=== PATIENT | male | born 1995 | race African-American/Black ===

== ENCOUNTER 2019-11-19 18:01 | Emergency (ER) | payer BC ==
[~2019-11-19] VITALS: Ht 182.9 cm; Wt 70.5 kg
--- NOTE | 2019-11-19 18:17 | PHYS DOC ---
Past History Past Medical History XQI-Abttiqvyq-lckbdcu Past Surgical History Circumcised male Smoking: Cigarettes Alcohol Use: Rarely Drug Use: Marijuana General Adult EDM: Chief Complaint: MULTIPLE COMPLAINTS HPI: HPI: ".. I ve been feeling like shit the past couple weeks.... been quynh off and on... fever sometimes... chills some time.. .. sore throat.... just quynh ache everywhere.. but better sometimes... wheeze sometimes....I do smoke... mainly marijuana..no vaping... I don't shoot up ever... I did eat some pussy maybe a couple weeks ago....maybe I picked up something... I did get chlamydia,.... That got treated..." " I just feel like I got the flu...." "I am a lot better now after that puffer... and the fluids.. " I Patient is a 24, year old male who presents with above hx and complaints of fever, chills, cough, pharyngitis, malaise, myalgia, arthralgia, wheezing and headache. Symptoms have been intermittent for the last 2 weeks. Patient denies any history immunosuppression or HIV. Patient normally healthy. No history of travel outside [facility]. No specific ill contacts other than possibly developed pharyngitis after oral sex. No history of IV drug use. Patient thinks his tetanus is up-to-date. Patient does not do flu vaccinations. Has not had any intake of bad food. No histor of hepatitis. Patient has had 4 lifetime sex partners. Patient does occasionally follow-up with primary care but he does not remember his name.. Patient admits to daily marijuana use at least 3 times a day. Patient has not taken any Tylenol or ibuprofen for his discomfort. Review of Systems: Review of Systems: Constitutional: Complains of fever or chills . Complains of generalized malaise Eyes: Denies change in visual acuity HENT: Complains of nasal congestion and sore throat Respiratory: Complains of a nonproductive cough and wheezing Cardiovascular: Denies chest pain or edema GI: Denies abdominal pain, nausea, vomiting, bloody stools or diarrhea : Denies dysuria Musculoskeletal: Complains of generalized myalgia and arthralgia Integument: Denies rash Neurologic: Complains of headache,. Denies focal weakness or sensory changes Endocrine: Denies polyuria or polydipsia Lymphatic: Denies swollen glands Psychiatric: Denies depression. Complains of anxiety. Heart Score: HEART Score for Chest Pain: HEART Score for Chest Pain Response (Comments) Value History Slighlty/Non-Suspicious 0 ECG Normal 0 Age < 45 0 Risk Factors No Risk Factors 0 Troponin < Normal Limit 0 Total 0 Risk Factors: Risk Factors: DM, Current or recent (<one month) smoker, HTN, HLP, family history of CAD, obesity. Risk Scores: Score 0 - 3: 2.5% MACE over next 6 weeks - Discharge Home Score 4 - 6: 20.3% MACE over next 6 weeks - Admit for Clinical Observation Score 7 - 10: 72.7% MACE over next 6 weeks - Early Invasive Strategies Family History: Family History: Noncontributory Current Medications: Current Meds: See nursing for home meds Allergies: Allergies: No known drug allergies Physical Exam: PE: Constitutional: Well developed, well nourished, no acute distress, non-toxic appearance. [] HENT: Normocephalic, atraumatic, bilateral external ears normal, oropharynx moist, mild injection of pharynx, postnasal drainage, no oral exudates, nose swollen turbinates and clear rhinorrhea. Eyes: PERRLA, EOMI, conjunctiva normal, no discharge. [] Neck: Normal range of motion, no tenderness, supple, no stridor. No anterior chain adenopathy Cardiovascular:Heart rate regular rhythm, no murmur [] Lungs & Thorax: Bilateral breath sounds equal at apex with few scattered wheezes on auscultation [] Abdomen: Bowel sounds normal, soft, no tenderness, no masses, no pulsatile masses. [] Small umbilicus hernia. Mild tenderness. No bowel. Circumcised male. No penile discharge. Testicles descended. Skin: Warm, dry, no erythema, no rash. [] Back: No tenderness, no CVA tenderness. [] Extremities: No tenderness, no cyanosis, no clubbing, ROM intact, no edema. [] Neurologic: Alert and oriented X 3, normal motor function, normal sensory function, no focal deficits noted. [] Psychologic: Affect anxious, judgement normal, mood normal. [] EKG: EKG: My interpretation of EKG shows a sinus rhythm at 69 bpm. No findings of acute STEMI or marked morphology. [] Radiology/Procedures: Radiology/Procedures: [address] [address] IMAGING REPORT Signed PATIENT: LAMONT TALAVERA ACCOUNT: [id number] : 1995 LOCATION: ER AGE: 24 SEX: M EXAM STATUS: REG ER ORD. PHYSICIAN: MARK BOLIVAR MD REASON: Dyspnea, cough, fever Omni 350 100cc PROCEDURE: CT ANGIOGRAPHY CHEST Exam: CT of chest with contrast INDICATION: Dyspnea, cough, fever TECHNIQUE: Sequential axial images through the chest obtained following the administration of 90 mL of Isovue-370 IV contrast. Sagittal and coronal reformatted images were reconstructed from the axial data and reviewed. Comparisons: Chest x-ray same day FINDINGS: Visualized portions of the thyroid are unremarkable. No enlarged mediastinal lymph nodes are identified. Heart size is normal. No pericardial effusion. Thoracic aorta has a normal course and caliber. Pulmonary artery is not enlarged. No pulmonary embolus identified within the main, lobar or segmental pulmonary arteries. Airways are patent. No consolidation or pneumothorax. No suspicious lung nodules. No pleural effusion or thickening. Visualized upper abdomen is unremarkable. No suspicious osseous lesions or acute fractures. IMPRESSION: No pulmonary embolus identified within the main, lobar or segmental pulmonary arteries. Exposure: One or more of the following in the visualized dose reduction techniques were utilized for this examination: 1. Automated exposure control 2. Adjustment of the MA and/or KV according to patient size 3. Use of iterative of reconstructive technique Electronically signed by: Alayna Olivares MD (11/19/2019 8:54 PM) [id number] DICTATED AND SIGNED BY: ALAYNA OLIVARES MD DATE: 11/19/192053 CC: MARK BOLIVAR MD; PCP,NO ~ [id number] [place] [id number] IMAGING REPORT Signed PATIENT: LAMONT TALAVERA ACCOUNT: [id number] : 1995 LOCATION: ER AGE: 24 SEX: M EXAM STATUS: REG ER ORD. PHYSICIAN: MARK BOLIVAR MD REASON: cough, fever PROCEDURE: PORTABLE CHEST 1V PORTABLE CHEST 1V Clinical Indication: Reason: cough, fever / Spl. Instructions: / History: Comparison: None. Findings: The cardiomediastinal silhouette is normal. Lungs are clear. There is no pneumothorax. No pleural effusion is appreciated. No acute bone abnormality. IMPRESSION: No acute cardiopulmonary process. Electronically signed by: Goldy Christina MD (11/19/2019 7:21 PM) [facility] DICTATED AND SIGNED BY: GOLDY CHRISTINA MD DATE: 11/19/191920 CC: MARK BOLIVAR MD; PCP,NO ~ Course & Med Decision Making: Course & Med Decision Making Pertinent Labs and Imaging studies reviewed. (See chart for details) Patient to get adequate rest. Patient to push fluids. Patient push fruit juices. Patient take Tylenol and ibuprofen [id number] for discomfort and fever. Patient gargle Listerine 4 times a day. Patient follow-up primary care. Patient encouraged to not smoke or use illicit drugs. May also use [id number] Benadryl for congestion and drainage. Use MDI two puffs four times a day. Must self isolate if ill. Return if any concerns. Follow-up primary care and review ED work-up and follow-up pending cultures. Patient requesting discharge at 2130 hrs. states he feels much better after IV fluids ,Tylenol and breathing treatment Impression: 1. Viral syndrome-mononucleosis versus COVID versus hepatitis ( lab works implies Viral) 2. Elevated monocytes 18. 3. Elevated D-dimer 1.01 4. Elevated AST 44/ ALT 69 5. Elevated CRP 18.2 [] Dragon Disclaimer: Dragon Disclaimer: This electronic medical record was generated, in whole or in part, using a voice recognition dictation system. Departure Departure: Disposition: HOME/RESIDENCE PRIOR TO ADM Condition: STABLE Referrals: [facility] (PCP) Justification of Admission: Justification of Admission: Justification of Admission Dx: N/A Dragon Disclaimer This chart was dictated in whole or in part using Voice Recognition software in a busy, high-work load, and often noisy Emergency Department environment. It may contain unintended and wholly unrecognized errors or omissions. Dragon Disclaimer This chart was dictated in whole or in part using Voice Recognition software in a busy, high-work load, and often noisy Emergency Department environment. It may contain unintended and wholly unrecognized errors or omissions. MARK BOLIVAR MD Nov 19, 2019 18:17
[2019-11-19] MEDS ORDERED: ALBUTEROL SULFATE 8GM INHALER. IH ONE (18:30)
[2019-11-19] MEDS ORDERED: ACETAMINOPHEN 500 MG TABLET PO ONE (18:30)
--- NOTE | 2019-11-19 18:36 | EKG ---
[address] [address] Test Date: 2019-11-19 Test Time: 18:29:41 Pat Name: LAMONT TALAVERA Department: Room: Gender: M Box Office Agent: : 1995 Requested By: MARK BOLIVAR Order Number: [id number] Reading MD: Measurements Intervals [place] Rate: 69 P: 45 FL: 126 QRS: 75 QRSD: 80 T: 39 QT: 370 QTc: 398 Interpretive Statements SINUS RHYTHM NORMAL ECG RI6.02 No previous ECG available for comparison
[2019-11-19 19:05] LABS: BASO % 1 % (0-3); EOS # 0.2 x10^3/uL (0.0-0.7); EOS % 3 % (0-3); HEMATOCRIT 40.6 % (39.0-53.0); HEMOGLOBIN 14.3 g/dL (13.0-17.5); LYMPH % 14 % (24-48); MEAN CORPUSCULAR HEMOGLOBIN 32 pg (25-35); MEAN CORPUSCULAR HGB CONC 35 g/dL (31-37); MEAN CORPUSCULAR VOLUME 90 fL (79-100); MONO # 1.3 x10^3/uL (0.0-1.1); MONO % 18 % (0-9); NEUT # 4.7 x10^3uL (1.8-7.7); NEUT % 65 % (31-73); PLATELET COUNT 240 x10^3/uL (140-400); RED BLOOD COUNT 4.52 x10^6/uL (4.30-5.70); RED CELL DISTRIBUTION WIDTH 11.9 % (11.5-14.5); WHITE BLOOD COUNT 7.2 x10^3/uL (4.0-11.0)
[2019-11-19 19:17] LABS: CALCIUM 8.8 mg/dL (8.5-10.1); CREATININE 1.3 mg/dL (0.7-1.3); GFR 83.5; POTASSIUM 3.5 mmol/L (3.5-5.1)
[2019-11-19 19:24] LABS: ALBUMIN 4.2 g/dL (3.4-5.0); C REACTIVE PROTEIN 18.2 mg/L (0-3.3); DIRECT BILIRUBIN 0.3 mg/dL (0.0-0.2); MAGNESIUM 1.9 mg/dL (1.8-2.4); TOTAL PROTEIN 7.9 g/dL (6.4-8.2)
--- NOTE | 2019-11-19 19:24 | RAD ---
PORTABLE CHEST 1V Clinical Indication: Reason: cough, fever / Spl. Instructions: / History: Comparison: None. Findings: The cardiomediastinal silhouette is normal. Lungs are clear. There is no pneumothorax. No pleural effusion is appreciated. No acute bone abnormality. IMPRESSION: No acute cardiopulmonary process. Electronically signed by: Goldy Christina MD (11/19/2019 7:21 PM) [facility]
[2019-11-19 19:58] LABS: INFLUENZA A PATIENT NEGATIVE (NEGATIVE); INFLUENZA B PATIENT NEGATIVE (NEGATIVE)
[2019-11-19] MEDS ORDERED: IV RINGERS SOLUTION,LACTATED 1,000 ML IV ONE (20:00)
[2019-11-19] MEDS ORDERED: IOHEXOL 350 MG/ML 100 ML VIAL. IV ONE (20:30)
[2019-11-19] MEDS ORDERED: CONTRAST GIVEN MC PRN (20:30)
--- NOTE | 2019-11-19 20:56 | RAD ---
Exam: CT of chest with contrast INDICATION: Dyspnea, cough, fever TECHNIQUE: Sequential axial images through the chest obtained following the administration of 90 mL of Isovue-370 IV contrast. Sagittal and coronal reformatted images were reconstructed from the axial data and reviewed. Comparisons: Chest x-ray same day FINDINGS: Visualized portions of the thyroid are unremarkable. No enlarged mediastinal lymph nodes are identified. Heart size is normal. No pericardial effusion. Thoracic aorta has a normal course and caliber. Pulmonary artery is not enlarged. No pulmonary embolus identified within the main, lobar or segmental pulmonary arteries. Airways are patent. No consolidation or pneumothorax. No suspicious lung nodules. No pleural effusion or thickening. Visualized upper abdomen is unremarkable. No suspicious osseous lesions or acute fractures. IMPRESSION: No pulmonary embolus identified within the main, lobar or segmental pulmonary arteries. Exposure: One or more of the following in the visualized dose reduction techniques were utilized for this examination: 1. Automated exposure control 2. Adjustment of the MA and/or KV according to patient size 3. Use of iterative of reconstructive technique Electronically signed by: Alayna Loen MD (11/19/2019 8:54 PM) [id number]
[2019-11-19 21:41] LABS: BARBITURATES NEG (NEG); BENZODIAZEPINES NEG (NEG); CANNABINOIDS POS (NEG); COCAINE NEG (NEG); METHADONE NEG (NEG); OPIATES NEG (NEG); PHENCYCLIDINE NEG (NEG)
[2019-11-19 21:43] LABS: AMPHETAMINE/METHAMPHETAMINE NEG (NEG)
[2019-11-19 21:51] LABS: BACTERIA,URINE 0 /HPF (0-FEW); BILIRUBIN,URINE NEG (NEG); CLARITY,URINE CLEAR; COLOR,URINE YELLOW; GLUCOSE,URINE NEG (NEG); NITRITE,URINE NEG (NEG); RBC,URINE 0 /HPF (0-2); SQUAMOUS EPITHELIAL CELL,UR OCC /LPF; UROBILINOGEN,URINE 0.2 mg/dL (0.2 mg/dL); WBC,URINE OCC /HPF (0-4)
[2019-11-19 22:19] VITALS: BP 119/55
== END 2019-11-19 22:20 | disposition home or self-care (01) ==
LOC: ER 18:01
DX: B34.9 Viral infection, unspecified (principal); R79.1 Abnormal coagulation profile; R79.82 Elevated C-reactive protein (CRP); R78.4 Finding of other drugs of addictive potential in blood; D72.821 Monocytosis (symptomatic); F17.210 Nicotine dependence, cigarettes, uncomplicated
CPT/HCPCS: 36415; 71045; 71275; 80048; 80076; 80307; 81001; 82550; 83690; 83735; 83880; 84443; 84484; 85025; 85379; 85610; 85730; 86140; 86705; 86709; 86803; 87040; 87070; 87340; 87804; 87880; 93005; 94640; 96360; 99285; J7120; J7613; Q9967; 94664